=== PATIENT | female | born 1965 | race Caucasian/White ===

== ENCOUNTER 2021-06-21 10:23 | Emergency (ER) | payer BC, SELFPAY ==
[2021-06-21 10:25] VITALS: BP 139/84; PULSE 66; RESP 18; TEMP 36.4; O2SAT 100
--- NOTE | 2021-06-21 10:26 | ECG_ITS ---
Measurements Intervals [place] Rate: 66 P: 43 CA: 212 QRS: -7 QRSD: 104 T: 79 QT: 392 QTc: 414 Interpretive Statements SINUS RHYTHM WITH FIRST DEGREE AV BLOCK ANTEROSEPTAL MYOCARDIAL INFARCTION , OF INDETERMINATE AGE [40+ ms Q WAVE IN V1-V4] BASELINE ARTIFACT ABNORMAL ECG NO PREVIOUS ECG AVAILABLE FOR COMPARISON Electronically Signed On 06-21-2021 11:40:22 CDT by Gregory Lopez M.D.
[2021-06-21 10:46] LABS: Basophils Absolute Auto 0.1 K/mm3 (0.0-0.1); Basophils Percent Auto 0.5 % (0.2-1.2); Eosinophils Absolute Auto 0.2 K/mm3 (0-0.3); Eosinophils Percent Auto 1.5 % (0-4.4); Hematocrit 46.8 % (37.0-47.0); Hemoglobin 15.4 g/dL (12.0-15.0); Immature Granulocyte Absolute 0.03 K/mm3 (0.00-0.031); Immature Granulocyte Percent A 0.3 % (0-0.5); Lymphocytes Absolute Auto 2.67 K/mm3 (0.9-3.2); Lymphocytes Percent Auto 25.8 % (18.3-44.2); Mean Corpuscular HGB Conc 32.9 g/dl (32-36); Mean Corpuscular Hemoglobin 30.4 pg (26-34); Mean Corpuscular Volume 92.3 fl (80-100); Mean Platelet Volume 9.4 fl (7.4-10.4); Monocytes Absolute Auto 0.8 K/mm3 (0.1-0.6); Monocytes Percent Auto 7.8 % (2.6-8.5); Neutrophils Absolute Auto 6.6 K/mm3 (1.3-6.7); Neutrophils Percent Auto 64.1 % (45.5-73.1); Platelet Count Result 413 k/mm3 (150-375); Red Blood Count 5.07 M/mm3 (4.2-5.4); Red Cell Distribution Width 14.4 % (11.5-14.5); White Blood Count 10.3 K/mm3 (4.5-10.0)
[2021-06-21 10:50] VITALS: BP 129/94; PULSE 69; RESP 17; O2SAT 100
[2021-06-21 10:58] LABS: INR 1.3; Prothrombin Time 15.5 Seconds (11.1-14.7)
[2021-06-21 10:59] LABS: Partial Thromboplastin Time 33.1 SECONDS (22.3-36.8)
[2021-06-21 11:00] LABS: Alanine Aminotransferase 17 U/L (4-35); Albumin Level 4.4 g/dL (3.5-5.1); Alkaline Phosphatase 75 U/L (38-126); Anion Gap 9 mmol/L (8-16); Aspartate Amino Transferase 27 U/L (14-36); Bilirubin,Total 0.6 mg/dL (0.2-1.3); Blood Urea Nitrogen 15 mg/dL (7-17); Calcium 9.2 mg/dL (8.4-10.2); Carbon Dioxide 29 mmol/L (22-30); Chloride 98 mmol/L (98-107); Estimated CRCL calculation 102 ml/min; Estimated Glomerular Filt Rate > 60; Glucose 110 mg/dL (65-110); Potassium 4.4 mmol/L (3.4-5.0); Sodium 136 mmol/L (137-145)
--- NOTE | 2021-06-21 11:10 | ED.RECABL ---
HPI - Recheck/Abnormal Lab/Rx General Chief Complaint: Recheck/Abnormal Lab/Rx Stated Complaint: elevated potassium Time Seen by Provider: 06/21/21 10:51 Source: RN notes reviewed History of Present Illness HPI narrative: Patient presents emergency department from home for hyperkalemia. 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 Denies any chest pain shortness of breath or any other symptoms Related Data Home Medications Medication Instructions Recorded Confirmed amiodarone 200 mg PO DAILY 06/21/21 06/21/21 apixaban 5 mg PO BID 06/21/21 06/21/21 biotin 1,000 mcg PO DAILY 06/21/21 06/21/21 estradiol 0.5 mg PO DAILY 06/21/21 06/21/21 hydrochlorothiazide 25 mg PO DAILY 06/21/21 06/21/21 irbesartan 150 mg PO DAILY 06/21/21 06/21/21 metoprolol succinate 200 mg PO DAILY 06/21/21 06/21/21 multivitamin with minerals 1 tablet PO DAILY 06/21/21 06/21/21 [Multiple Vitamin-Minerals] norethindrone (contraceptive) 0.35 mg PO DAILY 06/21/21 06/21/21 Allergies Allergy/AdvReac Type Severity Reaction Status Date / Time acetaminophen [From Percocet] Allergy Vomiting Verified 06/21/21 10:51 Iodinated Contrast Media Allergy Cramping Verified 06/21/21 10:51 of the Muscles meperidine [From Demerol] Allergy Vomiting Verified 06/21/21 10:51 oxycodone [From Percocet] Allergy Vomiting Verified 06/21/21 10:51 meclizine [From Antivert] AdvReac Rash Verified 06/21/21 10:51 sulfamethoxazole AdvReac Rash Verified 06/21/21 10:51 [From Septra] trimethoprim [From Septra] AdvReac Rash Verified 06/21/21 10:51 Review of Systems Review of Systems: Gen.: Denies fevers or chills ENT: Denies congestion Respiratory: Denies shortness of breath CV: Denies chest pain or palpitations GI: Denies abdominal pain nausea, emesis or diarrhea Musculoskeletal: Denies back pain or muscle pain Neuro: Denies numbness, tingling, weakness or focal weakness Skin: Denies rash Except as documented, all other systems reviewed and negative [facility] Past Medical History Medical History (Updated 06/21/21 @ 11:12 by Mateo Tabares DO) Hypertension Social History Social History (Updated 06/21/21 @ 11:12 by Mateo Tabares DO) Smoking status: Never smoker Exam Narrative: APPEARANCE: No acute distress, nontoxic, resting in bed EYES: EOMI HEENT: Normocephalic, atraumatic, OMM RESPIRATORY: No respiratory distress Clear to auscultation bilaterally with no rhonchi wheezing or rales. CARDIOVASCULAR: Regular rate and rhythm without murmurs rubs or gallops. ABDOMINAL: Soft, nontender, nondistended, no rebound or guarding MUSCULOSKELETAl: Moves all extremities. No clubbing, cyanosis or edema. NEURO: Awake and alert. Following commands, speech normal, no focal deficits SKIN:: Warm, dry. No rashes lesions or abrasions PSYCHIATRIC: Normal affect/mood, Course Course Emergency Course: Patient's lab work was drawn at another facility potassium is normal today suspect coagulated specimen Discussed with patient results of workup and diagnosis. Discussed need for follow-up with primary care, proper use of medication, and reasons to return to the emergency department. Patient understands and agrees to current treatment plan Vital Signs Vital signs: Vital Signs Temperature 97.5 F L 06/21/21 10:25 Pulse Rate 66 06/21/21 10:25 Respiratory Rate 18 06/21/21 10:25 Blood Pressure 139/84 06/21/21 10:25 Pulse Oximetry 100 06/21/21 10:25 Temperature 97.5 F L 06/21/21 10:25 Pulse Rate 69 06/21/21 10:50 Respiratory Rate 17 06/21/21 10:50 Blood Pressure 129/94 H 06/21/21 10:50 Pulse Oxim
== END 2021-06-22 02:50 | disposition home or self-care (01) ==
LOC: ANHED 11:25
PROVIDERS: Emergency Provider Emergency Medicine; PCP Family Medicine
DX: E87.5 Hyperkalemia (principal); I10 Essential (primary) hypertension; I44.0 Atrioventricular block, first degree; R94.31 Abnormal electrocardiogram [ECG] [EKG]
CPT/HCPCS: 36415; 80053; 85025; 85610; 85730; 93005; 99284

== ENCOUNTER 2021-06-29 15:04 | Emergency (ER) | payer BC, SELFPAY ==
--- NOTE | ~2021-06-29 | XR_ITS ---
EXAMINATION: XR chest 2V DATE: 06/29/2021 15:29 INDICATION: Generalized chest pain TECHNIQUE: PA and lateral views of the chest are obtained. COMPARISON: None available FINDINGS: There is a nodular opacity in the right middle lobe. There is no pleural effusion or pneumo thorax. The cardiomediastinal silhouette is normal. There is moderate thoracic spondylosis. IMPRESSION: 1. Nodular opacity of the right middle lobe which could be infectious or inflammatory however maligna ncy could have a similar appearance. Further evaluation with CT of the chest is recommended. Reviewed, dictated and finalized at location F. IMPRESSION: 1. Nodular opacity of the right middle lobe which could be infectious or inflam matory however malignancy could have a similar appearance. Further evaluation w ith CT of the chest is recommended.
--- NOTE | 2021-06-29 15:05 | ECG_ITS ---
Measurements Intervals [place] Rate: 67 P: 43 AL: 204 QRS: -20 QRSD: 125 T: 54 QT: 429 QTc: 453 Interpretive Statements SINUS RHYTHM POSSIBLE LEFT VENTRICULAR HYPERTROPHY [VOLTAGE CRITERIA PLUS LAE OR QRS WIDENING] POOR R-WAVE PROGRESSION, PROBABLE OLD ANTERIOR MYOCARDIAL INFARCTION COMPARED TO ECG 06/21/2021 10:34:26 NO SIGNIFICANT CHANGES Electronically Signed On 06-30-2021 13:37:14 CDT by Criss Sanchez M.D.
[2021-06-29 15:06] VITALS: BP 144/99; PULSE 67; RESP 18; TEMP 37; O2SAT 100
[2021-06-29 15:24] LABS: Basophils Percent Auto 0.4 % (0.2-1.2); Eosinophils Absolute Auto 0.1 K/mm3 (0-0.3); Eosinophils Percent Auto 1.3 % (0-4.4); Hematocrit 44.5 % (37.0-47.0); Hemoglobin 14.4 g/dL (12.0-15.0); Immature Granulocyte Absolute 0.03 K/mm3 (0.00-0.031); Immature Granulocyte Percent A 0.3 % (0-0.5); Lymphocytes Absolute Auto 2.68 K/mm3 (0.9-3.2); Lymphocytes Percent Auto 27.7 % (18.3-44.2); Mean Corpuscular HGB Conc 32.4 g/dl (32-36); Mean Corpuscular Hemoglobin 30.3 pg (26-34); Mean Corpuscular Volume 93.7 fl (80-100); Mean Platelet Volume 9.3 fl (7.4-10.4); Monocytes Absolute Auto 0.8 K/mm3 (0.1-0.6); Monocytes Percent Auto 8.4 % (2.6-8.5); Neutrophils Percent Auto 61.9 % (45.5-73.1); Platelet Count Result 406 k/mm3 (150-375); Red Blood Count 4.75 M/mm3 (4.2-5.4); Red Cell Distribution Width 14.1 % (11.5-14.5); White Blood Count 9.7 K/mm3 (4.5-10.0)
[2021-06-29 15:35] LABS: Alanine Aminotransferase 15 U/L (4-35); Albumin Level 4.5 g/dL (3.5-5.1); Alkaline Phosphatase 70 U/L (38-126); Anion Gap 7 mmol/L (8-16); Aspartate Amino Transferase 22 U/L (14-36); Bilirubin,Total 0.4 mg/dL (0.2-1.3); Blood Urea Nitrogen 15 mg/dL (7-17); Calcium 8.9 mg/dL (8.4-10.2); Carbon Dioxide 30 mmol/L (22-30); Chloride 100 mmol/L (98-107); Estimated CRCL calculation 115 ml/min; Estimated Glomerular Filt Rate > 60; Glucose 94 mg/dL (65-110); Lipase 79 U/L (23-300); Potassium 3.7 mmol/L (3.4-5.0); Sodium 137 mmol/L (137-145)
[2021-06-29 15:36] LABS: INR 1.2; Prothrombin Time 14.5 Seconds (11.1-14.7)
[2021-06-29 15:37] LABS: Partial Thromboplastin Time 32.6 SECONDS (22.3-36.8)
[2021-06-29 15:47] LABS: Troponin I < 0.012 ng/mL (0.000-0.034)
[2021-06-29 17:00] LABS: Add Urine Microscopic? NO; Appearance Urine Clear (Clear); Bilirubin Urine Negative (Negative); Blood Urine Negative (Negative); Color Urine Yellow (Yellow); Glucose Urine UA Negative (Negative); Ketones Urine Negative (Negative); Leukocyte Esterase Ur Negative LEU/UL (Negative); Nitrate Urine Negative (Negative); Protein Urine Negative (Negative); Specific Grav Ur 1.012 (1.001-1.035); Urobilinogen Urine Negative mg/dL (<2.0)
== END 2021-06-29 17:49 | disposition left against medical advice (07) ==
PROVIDERS: Emergency Provider Emergency Medicine; PCP Family Medicine
DX: R07.9 Chest pain, unspecified (principal); Z53.21 Procedure and treatment not carried out due to patient leaving prior to being seen by health care provider
CPT/HCPCS: 36415; 71046; 80053; 81003; 83690; 84484; 85025; 85610; 85730; 93005; 99199

== ENCOUNTER 2021-10-18 12:01 | Emergency (ER) | payer BC, SELFPAY ==
[2021-10-18 12:04] VITALS: BP 185/98; PULSE 62; RESP 18; TEMP 36.4; O2SAT 100
[2021-10-18 12:14] VITALS: BP 152/87; PULSE 63; RESP 15; O2SAT 90
[2021-10-18 12:48] LABS: Basophils Percent Auto 0.6 % (0.2-1.2); Eosinophils Absolute Auto 0.2 K/mm3 (0-0.3); Eosinophils Percent Auto 2.4 % (0-4.4); Hematocrit 39.8 % (37.0-47.0); Hemoglobin 12.9 g/dL (12.0-15.0); Immature Granulocyte Absolute 0.02 K/mm3 (0.00-0.031); Immature Granulocyte Percent A 0.3 % (0-0.5); Lymphocytes Absolute Auto 2.26 K/mm3 (0.9-3.2); Lymphocytes Percent Auto 31.3 % (18.3-44.2); Mean Corpuscular HGB Conc 32.4 g/dl (32-36); Mean Corpuscular Hemoglobin 30.2 pg (26-34); Mean Corpuscular Volume 93.2 fl (80-100); Mean Platelet Volume 9.1 fl (7.4-10.4); Monocytes Absolute Auto 0.5 K/mm3 (0.1-0.6); Monocytes Percent Auto 7.1 % (2.6-8.5); Neutrophils Absolute Auto 4.2 K/mm3 (1.3-6.7); Neutrophils Percent Auto 58.3 % (45.5-73.1); Platelet Count Result 354 k/mm3 (150-375); Red Blood Count 4.27 M/mm3 (4.2-5.4); Red Cell Distribution Width 12.9 % (11.5-14.5); White Blood Count 7.2 K/mm3 (4.5-10.0)
--- NOTE | 2021-10-18 12:48 | ED.GENADULT ---
HPI - General Adult General Chief complaint: Headache Stated complaint: headache, feels flushed, just doesn't feel right Time Seen by Provider: 10/18/21 12:08 History of Present Illness HPI narrative: Patient is a 56-year-old female who presents ER with frontal sinus pressure in the forehead. She has burning that moves from her ears down her cheeks. No rash. She has dizziness with position changes and moving her head. All last a couple of seconds. No vomiting. No diaphoresis. No recent trauma. Patient is concerned about taking medications due to the fact that she has history of atrial fibrillation and then has undergone a cardiac ablation. Denies fevers or chills or sweats. No postnasal drip or sore throat. No productive cough. Related Data Home Medications Medication Instructions Recorded Confirmed amiodarone 200 mg tablet 200 mg PO DAILY 06/21/21 06/21/21 apixaban 5 mg tablet 5 mg PO BID 06/21/21 06/21/21 biotin 1,000 mcg chewable tablet 1,000 mcg PO DAILY 06/21/21 06/21/21 estradiol 0.5 mg tablet 0.5 mg PO DAILY 06/21/21 06/21/21 hydrochlorothiazide 25 mg tablet 25 mg PO DAILY 06/21/21 06/21/21 irbesartan 150 mg tablet 150 mg PO DAILY 06/21/21 06/21/21 metoprolol succinate 200 mg 200 mg PO DAILY 06/21/21 06/21/21 capsule sprinkle, ext. release 24 hr multivitamin with minerals 1 tablet PO DAILY 06/21/21 06/21/21 (Multiple Vitamin-Minerals tablet) norethindrone (contraceptive) 0.35 0.35 mg PO DAILY 06/21/21 06/21/21 mg tablet Allergies Allergy/AdvReac Type Severity Reaction Status Date / Time acetaminophen [From Percocet] Allergy Vomiting Verified 06/21/21 10:51 Iodinated Contrast Media Allergy Cramping Verified 06/21/21 10:51 of the Muscles meperidine [From Demerol] Allergy Vomiting Verified 06/21/21 10:51 oxycodone [From Percocet] Allergy Vomiting Verified 06/21/21 10:51 meclizine [From Antivert] AdvReac Rash Verified 06/21/21 10:51 sulfamethoxazole AdvReac Rash Verified 06/21/21 10:51 [From ] trimethoprim [From ] AdvReac Rash Verified 06/21/21 10:51 Review of Systems Review of Systems: All systems reviewed & are unremarkable except as noted in HPI and below Constitutional: Constitutional: Denies chills, Denies fatigue and Denies fever(s) Eyes: Eyes: Denies change in vision ENT: Reports dizziness, Denies nasal congestion and Denies sore throat Cardiovascular: Cardiovascular: Denies chest pain, Denies rapid heart rate and Denies radiating jaw, neck or arm pain Respiratory: Respiratory: Denies cough and Denies dyspnea Gastrointestinal: Gastrointestinal: Denies abdominal pain, Denies diarrhea, Reports nausea and Denies vomiting Neurologic: Reports headache(s), Denies focal weakness and Denies numbness PMFSH Past Medical History Medical History (Updated 10/18/21 @ 14:34 by Jefe Uriostegui MD) Atrial fibrillation Hypertension Surgical History Surgical History (Updated 10/18/21 @ 14:32 by Jefe Uriostegui MD) H/O cardiac radiofrequency ablation Social History Social History (Updated 06/21/21 @ 11:12 by Mateo Tabares DO) Smoking status: Never smoker Exam Narrative: GENERAL: Well-appearing, morbidly obese, and in no acute distress. HEAD: Normocephalic, atraumatic. EYES: PERRL and EOMI. ENT: Mucous membranes moist. TMs with fluid behind them bilaterally. No otitis media. Scant cerumen in the ear canals. CHEST: Clear to auscultation. No respiratory distress. HEART: Regular rate and rhythm. Normal peripheral pulses. ABDOMEN: Soft, nontender, nondistended. EXTREMITIES: Normal range of motion. No edema. SKIN: Warm, dry, no rash. NEURO: Alert and oriented x3. PSYCH: Normal mood and affect. Course Course Emergency Course: Patient resting comfortably. Discharge home with nasal corticosteroid. Recommend follow-up with PCP. Patient seems to be having some peripheral vertigo but cannot take Antivert due to rash. She reports she is
[2021-10-18 12:59] LABS: Anion Gap 6 mmol/L (8-16); Blood Urea Nitrogen 17 mg/dL (7-17); Carbon Dioxide 31 mmol/L (22-30); Chloride 98 mmol/L (98-107); Estimated CRCL calculation 85 ml/min; Estimated Glomerular Filt Rate 58; Glucose 93 mg/dL (65-110); Potassium 4.3 mmol/L (3.4-5.0); Sodium 135 mmol/L (137-145)
[2021-10-18] MEDS: KETOROLAC 15 MG/ML VIAL (*BKC) IV PUSH (13:03)
[2021-10-18 14:53] VITALS: BP 144/86; PULSE 88; RESP 16; O2SAT 99
== END 2021-10-18 14:54 | disposition home or self-care (01) ==
PROVIDERS: Emergency Provider Emergency Medicine; PCP Family Medicine
DX: R51.9 Headache, unspecified (principal); I48.91 Unspecified atrial fibrillation; I10 Essential (primary) hypertension
CPT/HCPCS: 36415; 80048; 85025; 96374; 99284; J1885